=== PATIENT | female | born 1965 | race Caucasian/White ===

== ENCOUNTER → 2019-10-09 | Outpatient (CLI) | payer BC ==
--- NOTE | 2019-10-09 13:02 | REP ---
Right shoulder series: Three views. History: Pain in the right shoulder. Findings: The right glenohumeral and acromioclavicular joints are normally aligned. Periarticular soft tissues are unremarkable. No significant bony abnormality is seen. Impression: Negative right shoulder radiographs. Electronically Signed by Brent Murphy MD 10/09/2019 12:53 P
--- NOTE | 2019-10-09 13:03 | REP ---
Right elbow series: Four views. History: Pain. Findings: Four views right elbow demonstrate normal bones, joints, and soft tissues. Impression: Negative right elbow radiographs. Electronically Signed by Brent Murphy MD 10/09/2019 12:54 P
== END ==
LOC: M ADAMS 12:13
PROVIDERS: ATTEND Physician Assistant
DX: M25.511 Pain in right shoulder (principal); M25.521 Pain in right elbow